=== PATIENT | male | born 1960 | race Caucasian/White ===

== ENCOUNTER → 2020-03-28 | Day surgery (SDC) | payer OTHER ==
[~2020-03-28] VITALS: Ht 182.9 cm; Wt 88.5 kg
[2020-03-28] VITALS (17 sets, daily range): BP systolic 96–141; BP diastolic 64–84
[~2020-03-28] MED LIST: ALPRAZOLAM 0.5 MG TAB ONE; ASPIRIN 325 MG TAB ONE; BIVALRIUDIN 250 MG/VIAL VIAL IV ONE; DIPHENHYDRAMINE HCL 25 MG CAP ONE; FENTANYL CITRATE/PF 100MCG/2 ML INJ ONE; HEPARIN SOD/SOD CHLORIDE 2,000 ML ONE; IOPAMIDOL 370 MG/ML 200 ML INFUS..BTL INJ ONE; LIDOCAINE HCL 2% LOCAL 20 ML VIAL ONE; LOVASTATIN10 MG PO; MIDAZOLAM HCL 2 MG/2 ML VIAL ONE; PRASUGREL 10 MG TAB ONE; SODIUM CHLORIDE 0.9% 1000ML 1,000 ML ONE; SODIUM CHLORIDE 0.9% 50ML 50 ML ONE; VERAPAMIL HCL 2.5 MG/ML 2 ML VIAL ONE
--- NOTE | 2020-03-28 11:40 | NUR ---
pt in ACU 8 , prepped for procedure. Alert oriented and appropriate, PERRLA, respirations even and unlabored to room air. Pulses x4 extremities equal and palpable . Cap fill brisk < 3 sec. + modified barbeau and neurovascular function of right wrist/hand. Right wrist and bilateral groin prepped for procedure. skin intact. Skin warm and dry integrity appears intact in general. IV 20g to left AC x2 attempt by Chasidy Yañez RN and presents healthy w/o s/s of infiltration or complaint. Abdomen soft and supple. pt offered toileting, denies need to urinate or defecate. Personal affects with patient. Family at bedside . Pt verbalizes understanding of POC. 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 bed low and locked, side rails up x2 and call light at side. Awaiting for physician arrival/procedure time. PO medications given as orderd for pre-op (xanax 0.5mg/benadryl 50mg) pt using provided/ personal mask for COVID-19 mitigation. -cgf
--- NOTE | 2020-03-28 15:40 | Operative Report ---
DATE OF PROCEDURE: 03/28/2020 SURGEON: Blu Jaime MD PROCEDURES PERFORMED: 1. Left heart catheterization, selective coronary angiography. 2. Conscious sedation, 65 minutes. 3. Stent placement to the mid right coronary artery. 4. Deployment of right wrist TR band. COMPLICATIONS: None. RECOMMENDATIONS: Dual antiplatelet therapy for at least 6 months, staged intervention on the diagonal and left anterior descending artery. INDICATIONS: Coronary artery disease, abnormal stress test, and angina. DESCRIPTION OF PROCEDURE: Access was obtained in the right radial artery. A 5-N[place]ien sheath was placed. Coronary angiography demonstrated patent left main. Left anterior descending artery had mild disease. Ostial diagonal artery was 80% stenosis. This was a 3 mm vessel. Left anterior descending artery and circumflex artery had mild disease. Right coronary artery proximal 50%, mid 70% with JODI-2 flow. LV end-diastolic pressure was normal. No gradient across the aortic valve on pullback. A decision was made to intervene on the right coronary artery. The patient received intravenous bivalirudin and oral prasugrel and aspirin for anticoagulation. The right coronary artery was cannulated using a IR 1.05-N[place]ien guiding catheter. Short Runthrough wire was advanced for support. Primary stent 3.0 x 12 mm Synergy deployed at 20 atmospheres. Excellent end result, less than 10% residual stenosis, JODI-3 flow. No complications. Wire and guide sheath removed. TR band applied. The patient discharged. MD FAUSTINA Burnett/MODL /[id number]
--- NOTE | 2020-03-28 17:00 | NUR ---
3cc air released from pt's rt radial tr band. no bleeding noted. pt tolerated well.
--- NOTE | 2020-03-28 17:21 | NUR ---
1715: 3cc removed from TR band. no active bleeding noted. pt tolerated well
--- NOTE | 2020-03-28 18:19 | NUR ---
1815: dc instruction reviewed/given to pt/pt's spouse including: diet, restrictions, home meds, drsg care, puncture site care, and follow up appt with understanding verbalized by both.
--- NOTE | 2020-03-28 18:35 | NUR ---
1835: 20g to pt's lfa dc'ed and drsg placed. catheter tip noted intact. pt tolerated well. 184: pt getting dressed with assist from his spouse. denies any dizziness. 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
== END | disposition home or self-care (01) ==
LOC: CATH LAB 11:27
PROVIDERS: ATTEND Internal Medicine Interventional Cardiology
DX: I25.118 Atherosclerotic heart disease of native coronary artery with other forms of angina pectoris (principal); I73.9 Peripheral vascular disease, unspecified; Z82.49 Family history of ischemic heart disease and other diseases of the circulatory system; Z88.0 Allergy status to penicillin
CPT/HCPCS: 92928; 93454; C1769; C1874; C1887; J0583; J2001; J2250; J3010; J7030; Q9967; 99152; 99153

== ENCOUNTER → 2020-05-07 | Day surgery (SDC) | payer OTHER ==
[2020-05-02 10:33] LABS: BASOPHILS % 0.8 % (0.0-1.0); EOSINOPHILS # (AUTO) 0.2 (0.0-0.4); EOSINOPHILS % 4.1 % (0.0-6.0); HEMATOCRIT 46.4 % (38.2-49.6); HEMOGLOBIN 15.8 g/dL (14.0-18.0); LYMPHOCYTES # (AUTO) 1.3 (1.0-3.2); LYMPHOCYTES % 24.9 % (18.0-39.1); MEAN CORPUSCULAR HEMOGLOBIN 30.8 pg (28-32); MEAN CORPUSCULAR HGB CONC 34.1 g/dL (31-35); MEAN CORPUSCULAR VOLUME 90.4 fL (81-99); MONOCYTES # (AUTO) 0.5 (0.2-0.8); MONOCYTES % 10.3 % (4.4-11.3); NEUTROPHILS # (AUTO) 3.1 (2.1-6.9); NEUTROPHILS % 59.7 % (38.7-80.0); PLATELET COUNT 224 x10e3/uL (140-360); RED BLOOD COUNT 5.13 x10e6/uL (4.3-5.7); RED CELL DISTRIBUTION WIDTH 13.1 % (11.7-14.4)
[2020-05-02 10:58] LABS: ALANINE AMINOTRANSFERASE 46 IU/L (0-55); ALBUMIN 4.4 g/dL (3.5-5.0); ALBUMIN/GLOBULIN RATIO 1.4 (0.8-2.0); ALKALINE PHOSPHATASE 67 IU/L (40-150); ANION GAP 13.6 mmol/L (8-16); BLOOD UREA NITROGEN 19 mg/dL (7-26); BUN/CREATININE RATIO 16 (6-25); CALCIUM 9.5 mg/dL (8.4-10.2); CARBON DIOXIDE 28 mmol/L (22-29); CHLORIDE 103 mmol/L (98-107); EST GLOMERULAR FILTRATION RATE > 60 ML/MIN (60-); GLUCOSE 90 mg/dL (74-118); POTASSIUM 4.6 mmol/L (3.5-5.1); SODIUM 140 mmol/L (136-145)
[2020-05-07] VITALS (20 sets, daily range): BP systolic 116–158; BP diastolic 62–98
[~2020-05-07] VITALS: Ht 182.9 cm; Wt 88.5 kg
[~2020-05-07] MED LIST changes: +AMIODARONE HCL 100 ML IV ONE; +AMIODARONE HCL 150 MG/100 ML BAG IV ONE; +ASPIRIN EC81 MG PO; +ATORVASTATIN CA20 MG PO; +CLOPIDOGREL75 MG PO; +DIGOXIN INJ 0.25 MG/ML 2 ML AMP ONE; +HEPARIN SOD (PORCINE) 1000 UNIT/ML 30ML ONE; +NITROGLYCERIN/D5W 200 MCG/ML 250 ML ONE
--- NOTE | 2020-05-07 11:15 | NUR ---
1115p Pt in rm 9, Identifierx2 prepped for procedure. Alert oriented and appropriate, PERRLA, respirations even and unlabored to room air. Pulses x4 extremities equal and palpable . Cap fill brisk < 3 sec. + modified Barbeau and neurovascular function of right wrist/hand. Right wrist and bilateral groin prepped for procedure. skin intact.Scheduled [facility] with probalble stent placement Dr Jaime, Radial approach primary. Skin warm and dry integrity appears intact in general. IV left hand #20x1 Tete ARANDA and presents healthy w/o s/s of infiltration or complaint. Abdomen soft and supple. pt offered toileting, denies need to urinate or defecate. Personal affects with patient. Family to be called post procedure . Pt verbalizes understanding of POC. 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 bed low and locked, side rails up x2 and call light at side. Awaiting for physician arrival/procedure time. pt using personal mask for COVID-19 mitigation. Caryl Beltre at bedside.Denies CP or SOB at this time. ds/rn
--- NOTE | 2020-05-07 11:26 | NUR ---
1126 Handoff to Timoteo RN , he will give preop meds. Consent completed also. PCN arm band place on left arm. Vs stable Sinus cely. Denies CP or SOB ds/rn
--- NOTE | 2020-05-07 13:15 | NUR ---
1315p CCL Recovery phase initiated,bedside report received from Becca Mahmood RN. Identifierx2,Alert oriented and appropriate, PERRLA, respirations even and unlabored to room air. Pulses x4 extremities equal and strong. Right hand + neurovascular function Cap fill brisk < 3 sec. TR band present w/ reported 14ml to band. No s/s of hematoma or gross abnormality. Ok to decrease air in TR Band at 3pm LAD fix Dr Addison mittal Skin warm and dry integrity appears intact. IV left hand at 100cchr presents healthy w/o s/s of infiltration or complaint.Abdomen soft and supple. pt offered toileting, denies need to urinate or defecate. No personal affects with patient. Family not available. Pt understanding of POC. Bedside monitoring re- initiated denies co Cp or SOB. Currently w/o complaint of pain or need. Call light within reach, bed low and locked, side rails up x2. pt using personal mask for COVID-19 mitigation. -solomon/harini
--- NOTE | 2020-05-07 13:45 | Operative Report ---
DATE OF PROCEDURE: 05/07/2020 SURGEON: Blu Jaime MD INDICATIONS: Coronary artery disease, angina, staged percutaneous coronary intervention. PROCEDURES PERFORMED: 1. Ultrasound-guided access in the right radial artery with sheath placement. 2. Conscious sedation, 35 minutes. 3. Left heart catheterization, selective coronary angiography. 4. Stent placement in the mid left anterior descending artery. 5. Deployment of right wrist TR band. COMPLICATIONS: None. BLOOD LOSS: Minimal. RECOMMENDATIONS: Dual antiplatelet therapy for at least 6 months. DESCRIPTION OF PROCEDURE: Access was obtained in the right radial artery using ultrasound guidance. A 6-[place]ese sheath was placed. Coronary angiography demonstrated patent left main, left anterior descending artery mid 70% stenosis. The patient received intravenous Angiomax and oral aspirin and prasugrel for anticoagulation. The left main was cannulated using an XB 3.5, 6-[place] guiding catheter. A short Runthrough wire was advanced for support into the distal left anterior descending artery. A single 3.0 x 24 mm Synergy stent was deployed at 14 atmospheres. Excellent end result, less than 10% residual stenosis. JODI-3 flow. No complications. Wire and guide sheath were removed. TR band applied. The patient discharged home the same day. Blu Jaime MD [facility]/MODL /[id number]
--- NOTE | 2020-05-07 15:00 | NUR ---
1500 monitor changes atrial fib asymptomatic stat ekg ordered Juan Jose RN to inform Dr Addison carbajal/rn
--- NOTE | 2020-05-07 15:00 | NUR ---
1500pm RADIAL Compression removal: Initial Cuff volume 13 cc 1500 pm -3cc Removed No hematoma/bleeding noted with normal neurovascular function. 1515 pm -5cc Removed No hematoma/ bleeding noted with normal neurovascular function. 1530pm -5 cc Removed No hematoma/bleeding noted with normal neurovascular function. Air removal completed. Stasis achieved sterile 2x2,Tegaderm, Coban dressing No hematoma, bleeding noted with normal neurovascular function. Pt instructed on POC. Ds/Rn
--- NOTE | 2020-05-07 15:36 | NUR ---
1536 Stat 12 lead EKG confirms atrial fib asymptomatic rate variable in 100-124. Juan Jose Rn pushed 12.5 Digoxin over 2mins Amiodorine bolus drip started to left iv site at 400cchr to infuse over 15mins Pt remains atrial fib rate 120-130 remain symptomatic at bedside. TR band air removal in progress. No gross issues pain,pallor or pressure. ds/rn
--- NOTE | 2020-05-07 15:45 | NUR ---
1545p Dr Jaime at bedside discussed POC with and pt. Will re-evaluate for potential bed disposition. Remains atrial fib other VS stable. Tolerated PO intake. ds/rn
--- NOTE | 2020-05-07 15:50 | NUR ---
1550pm Amiodorine drip finished. Timoteo RN to inform MD and update HR remains atrial fib 110 aymptomatic.No gross issues pain pallor pressure. Normal neuro vascular function to rt hand. ds/rn
--- NOTE | 2020-05-07 16:50 | NUR ---
1650p Timtoeo Ragsdale spoke Dr Jaime relieved orders additional 150 Amiodarone IVPB over 15min Remains in Atrial fib aymptomatic.Update scheduled for Dr Jaime call back at 1735pm. 1705pm Amiodarone infusion completed remains in atrial fib ,aymptomatic. solomon/harini
--- NOTE | 2020-05-07 17:20 | NUR ---
1720p Juan Jose RN at bedside for assessment.Manual correlation of left iv arm correlates to rt leg calf bp 150/70. remains at bedside.Awaiting time to call update Dr Jaime ar 1735pm ,Denies CP or SOB ds/rn
--- NOTE | 2020-05-07 17:50 | NUR ---
Rn spoke with Dr Addison richardson to keep saline lock Observe till 1900pm and report monitor status to Dr Jaime Remains in atrial fib,asymptomatic.Denies chest pain or SOB rate 120's solomon/harini Addendum: 05/07/20 at 1811 by Leslie Aparicio RN RN mariana carbajal/rn
--- NOTE | 2020-05-07 18:00 | NUR ---
1800 brght outside food Pt on regular diet. Offered additional sandwich tray,preferred out side food. Continues to have atrial fib asymptomatic rare of 120 ds/rn
--- NOTE | 2020-05-07 18:45 | NUR ---
1845pm Converted to NSR rate 70's Juan Jose Rn paging Dr Jaime No gross issues pain,pallor,pressure or dysrhythmia. normal neuro vascular function to rt wrist ds/rn.
--- NOTE | 2020-05-07 18:57 | NUR ---
1857pm stat EKG ordered by Dr Addison Ingram RN, Return to office in am report any abnormal symptom to md immediately. EKG DONE ds/rn
--- NOTE | 2020-05-07 19:00 | NUR ---
1900Pt meets discharge criteria. VS wnl, alert and oriented. Pt and Family Understands discharge instruction. Overall general assess w/o gross outliers. Skin warm, dry, and intact. Right radial dressing soft w/o s/s of hematoma. + neurovascular function of right hand present. IV removed and appears distal tip is intact, staff member verifying Juan Jose RN Pt maintains mask on for COVID 19 precautions being taken by wheel chair to awaiting car. Transfers w/o gross distress with discharge paperwork in hand.- remain in NSR with conversion from atrial fib. with Amiodarone iv bolus total 300mg and Digoxin 12.5mg ivp.Denies CP or SOB.ds/rn
--- NOTE | 2020-05-07 19:00 | NUR ---
1900p Pt meets discharge criteria. VS wnl, alert and oriented. Pt and Family Understands discharge instruction. Overall general assess w/o gross outliers. Skin warm, dry, and intact. Right radial dressing soft w/o s/s of hematoma. + neurovascular function of right hand present. IV removed and appears distal tip is intact, Timoteo hospital staff pharmacist member verifying. Pt maintains mask on for COVID 19 precautions being taken by wheel chair to awaiting car. Transfers w/o gross distress with discharge paperwork in hand.Monitor back in Sinus Rhythm aware to see md in office at 8am tomorrow-ds/rn
== END | disposition home or self-care (01) ==
LOC: CATH LAB 10:39
PROVIDERS: ATTEND Internal Medicine Interventional Cardiology
DX: I25.118 Atherosclerotic heart disease of native coronary artery with other forms of angina pectoris (principal); I73.9 Peripheral vascular disease, unspecified; I10 Essential (primary) hypertension; E78.49 Other hyperlipidemia; R73.03 Prediabetes; Z88.0 Allergy status to penicillin; Z01.812 Encounter for preprocedural laboratory examination; Z20.828 Contact with and (suspected) exposure to other viral communicable diseases; Z79.899 Other long term (current) drug therapy; Z79.02 Long term (current) use of antithrombotics/antiplatelets; Z79.82 Long term (current) use of aspirin; Z82.49 Family history of ischemic heart disease and other diseases of the circulatory system
CPT/HCPCS: 36415; 76937; 80053; 85025; 92928; 93005; C1874; J0583; J1160; J1644; J2001; J2250; J3010; J7030; Q9967; U0002; 93454; 99152